=== PATIENT | female | born 1955 | race Caucasian/White ===

== ENCOUNTER 2022-08-01 05:36 | Outpatient (CLI) | payer MEDICARE ==
[~2022-08-01] VITALS: Ht 162.5 cm; Wt 72.7 kg
[2022-08-01] MEDS ORDERED: [UNRECOGNIZED DRUG - OTHER] PO (13:53)
[2022-08-01] MEDS ORDERED: ASPI-999 PO (13:53)
[2022-08-01] MEDS ORDERED: CLOP-31 PO (13:53)
[2022-08-01] MEDS ORDERED: HYDR-3820 PO (13:53)
[2022-08-01] MEDS ORDERED: ATOR10TA66 PO (13:53)
[2022-08-01] MEDS ORDERED: METO50TA7 PO (13:53)
[2022-08-01] MEDS ORDERED: RT-ALBUINH INH (13:53)
[2022-08-01] MEDS ORDERED: LISI10TA25 PO (13:53)
[2022-08-01] MEDS ORDERED: TRAM50TA3 PO (13:53)
[2022-08-01] MEDS ORDERED: METF-397 PO (13:53)
[2022-08-01] MEDS ORDERED: FLUT9.9S NS (13:53)
== END 2022-08-01 14:31 | disposition home or self-care (01) ==
LOC: PREOP 05:36
PROVIDERS: ATTEND Otolaryngology Otolaryngology/Facial Plastic Surgery
DX: Z01.818 Encounter for other preprocedural examination (principal)

== ENCOUNTER 2022-08-04 07:08 | Day surgery (SDC) | payer MEDICARE ==
[2022-08-04] VITALS (10 sets, daily range): BP systolic 97–136; BP diastolic 60–88
[~2022-08-04] VITALS: Ht 162.5 cm; Wt 72.7 kg
[~2022-08-04 07:08] MED LIST: ASPI-999 PO; ATOR10TA66 PO; CLOP-31 PO; FLUT9.9S NS; HYDR-3820 PO; LISI10TA25 PO; METF-397 PO; METO50TA7 PO; RT-ALBUINH INH; TRAM50TA3 PO; [UNRECOGNIZED DRUG - OTHER] PO
[2022-08-04] MEDS ORDERED: LACTATED RINGERS 1,000 ML IV PRN (07:30)
--- NOTE | 2022-08-04 07:49 | Progress Note-Post Operative ---
Post-Operative Progess Note Surgeon (s)/Yarn Wrapper (s) Surgeon RADHA SMILEY MD Yarn Wrapper n/a Pre-Operative Diagnosis Bilat JAZ Post-Operative Diagnosis same Post-Op Procedure Note Date of Procedure: August 04, 2022 Name of Procedure Performed: BMT Description & Findings Description and Findings: n/a Anesthesia Type lma Estimated Blood Loss minimal Packing none. Specimen(s) collected/removed none RADHA SMILEY MD August 04, 2022 07:49
--- NOTE | 2022-08-04 07:49 | Progress Note-Pre Operative ---
Pre-Operative Progress Note Date of Available H&P: August 04, 2022 Date H&P Reviewed: August 04, 2022 Time H&P Reviewed: 07:00 History & Physical: H&P Reviewed, Patient Examed, No changes noted Changes from last HP none Pre-Operative Diagnosis: RADHA Huerta MD August 04, 2022 07:49
[2022-08-04] MEDS ORDERED: proPOfol 200 MG/20 ML (DIPRIVAN) VIAL IV ONE (07:50)
[2022-08-04] MEDS ORDERED: fentaNYL INJ 100 MCG/2 ML AMP ONE (07:50)
[2022-08-04] MEDS ORDERED: ONDANSETRON 4 MG/2 ML (SDV) Z0FRAN ONE (07:50)
[2022-08-04] MEDS ORDERED: SEVOFLURANE (ULTANE) 15 ML INHAL SOLN ONE (07:50)
[2022-08-04] MEDS ORDERED: MIDAZOLAM 2 MG/2 ML (VERSED) VIAL ONE (07:50)
[2022-08-04] MEDS ORDERED: APAP 325 MG/10.15 ML LIQ (TYLENOL) UDC PO PRN (08:00)
[2022-08-04] MEDS ORDERED: PHENYLEPHRINE 100 MCG/ML 10 ML (ANESTHESIA) SYR ONE (08:13)
[2022-08-04] MEDS ORDERED: ONDANSETRON 4 MG/2 ML (SDV) Z0FRAN IVP PRN (08:30)
[2022-08-04] MEDS ORDERED: HYDROmorphone 2 MG/ML VIAL (DILAUDID) IV ONE (08:30)
[2022-08-04] MEDS ORDERED: OFLO5DRO33 EACH EAR (09:30)
--- NOTE | 2022-08-04 09:47 | Anesthesia-General Post-Op ---
General Patient Condition Mental Status/LOC: Same as Preop Cardiovascular: Satisfactory Nausea/Vomiting: Absent Respiratory: Satisfactory Pain: Controlled Complications: Absent Post Op Complications Complications None Follow Up Care/Instructions Patient Instructions None needed. Anesthesia/Patient Condition Patient Condition Patient is doing well, no complaints, stable vital signs, no apparent adverse anesthesia problems. No complications reported per nursing. D/C home per [facility] [place] Criteria: Yes DARIELA DUNN CRNA August 04, 2022 09:47
== END 2022-08-04 09:55 ==
LOC: SDC 07:08
PROVIDERS: ATTEND Otolaryngology Otolaryngology/Facial Plastic Surgery
DX: H65.23 Chronic serous otitis media, bilateral (principal); H69.90 Unspecified Eustachian tube disorder, unspecified ear; H93.8X3 Other specified disorders of ear, bilateral; F17.210 Nicotine dependence, cigarettes, uncomplicated; Z28.310 Unvaccinated for COVID-19
CPT/HCPCS: 82947; 87081; 93005